=== PATIENT | female | born 1945 | race Caucasian/White ===

== ENCOUNTER 2018-08-01 11:00 | Inpatient (IN) | payer OTHER ==
[~2018-08-01] VITALS: Ht 154.9 cm; Wt 68.0 kg
[2018-08-01] MEDS ORDERED: GABAPENTIN300 MG PO (14:38)
[2018-08-01] MEDS ORDERED: CLONAZEPAM1 MG PO (14:38)
[2018-08-09] MEDS ORDERED: DOCUSATE SODIU100 MG PO (11:35)
[2018-08-09] MEDS ORDERED: PERCOCET 5-3251 EACH PO (11:37)
[2018-08-09] MEDS ORDERED: CLONAZEPAM1 MG PO (11:37)
[2018-08-09] MEDS ORDERED: GABAPENTIN800 MG PO (12:32)
== END 2018-08-09 15:20 | DRG 454 ==
LOC: PED 08-08 04:35 → O/R 08-08 04:35 → SURH 08-08 10:00 → PED 08-08 11:54 → SURH 08-08 12:45 → PED 08-09 15:20
PROVIDERS: Orthopaedic Surgery Orthopaedic Surgery of the Spine
PROC: 0RG2071 Fusion of 2 or more Cervical Vertebral Joints with Autologous Tissue Substitute, Posterior Approach, Posterior Column, Open Approach (ICD-10-PCS; 2018-08-08)
PROC: 0RT30ZZ Resection of Cervical Vertebral Disc, Open Approach (ICD-10-PCS; 2018-08-08)
PROC: 07DS3ZZ Extraction of Vertebral Bone Marrow, Percutaneous Approach (ICD-10-PCS; 2018-08-08)
PROC: 0RG20A0 Fusion of 2 or more Cervical Vertebral Joints with Interbody Fusion Device, Anterior Approach, Anterior Column, Open Approach (ICD-10-PCS; principal; 2018-08-08 10:00)
DX: M50.01 Cervical disc disorder with myelopathy, high cervical region (principal); M47.12 Other spondylosis with myelopathy, cervical region

== ENCOUNTER 2019-10-17 07:00 | Day surgery (SDC) | payer OTHER ==
[~2019-10-17] VITALS: Ht 152.4 cm; Wt 68.0 kg
[~2019-10-17 07:00] MED LIST: ATORVASTATIN CA10 MG PO; CLONAZEPAM1 MG PO; DOCUSATE SODIU100 MG PO; GABAPENTIN300 MG PO; GABAPENTIN800 MG PO; PERCOCET 5-3251 EACH PO
[2019-10-17] MEDS ORDERED: PERCOCET 5-3251 EACH PO (11:26)
[2019-10-17] MEDS ORDERED: COLACE100 MG PO (11:26)
[2019-10-17] MEDS ORDERED: CLONAZEPAM0.5 MG PO (11:26)
== END 2019-10-18 08:00 | disposition home or self-care (01) ==
LOC: CIR.AMB 07:00 → SURH 09:30 → O/R 13:12 → SURH 13:12 → EDSTATUS 13:15 → CIR.AMB 10-18 08:00 → O/R 10-18 15:31 → SURH 10-18 15:31
DX: M48.062 Spinal stenosis, lumbar region with neurogenic claudication (principal); M54.16 Radiculopathy, lumbar region; I10 Essential (primary) hypertension

== ENCOUNTER 2020-09-12 09:00 | Inpatient (IN) | payer OTHER ==
[~2020-09-12] VITALS: Ht 157.5 cm; Wt 68.0 kg
[~2020-09-12 09:00] MED LIST changes: +CLONAZEPAM0.5 MG PO; +COLACE100 MG PO
[2020-09-12] MEDS ORDERED: PROAIR HFA8.5 GM IH (11:44)
[2020-09-19] MEDS ORDERED: CLONAZEPAM1 MG PO (15:47)
[2020-09-19] MEDS ORDERED: PERCOCET 5-3251 EACH PO (15:47)
[2020-09-19] MEDS ORDERED: COLACE100 MG PO (15:47)
[2020-09-19] MEDS ORDERED: MEDROLPACK PO (15:48)
[2020-09-19] MEDS ORDERED: AMOX-CLAV 875-1 EACH PO (15:48)
[2020-09-19] MEDS ORDERED: NEURONTIN800 MG PO (15:48)
== END 2020-09-21 12:22 | disposition home or self-care (01) | DRG 455 ==
LOC: ADM 09:00 → EDSTATUS 09:00 → SURH 09-19 09:00 → O/R 09-19 10:54 → SURG 09-19 19:36 → MEDI 09-21 03:03 → SURG 09-21 12:22
PROVIDERS: ADMIT Orthopaedic Surgery Orthopaedic Surgery of the Spine; ATTEND Orthopaedic Surgery Orthopaedic Surgery of the Spine
PROC: 0SG1071 Fusion of 2 or more Lumbar Vertebral Joints with Autologous Tissue Substitute, Posterior Approach, Posterior Column, Open Approach (ICD-10-PCS; 2020-09-19)
PROC: 3E0U0GB Introduction of Recombinant Bone Morphogenetic Protein into Joints, Open Approach (ICD-10-PCS; 2020-09-19)
PROC: 0ST20ZZ Resection of Lumbar Vertebral Disc, Open Approach (ICD-10-PCS; 2020-09-19)
PROC: 07DR3ZZ Extraction of Iliac Bone Marrow, Percutaneous Approach (ICD-10-PCS; 2020-09-19)
PROC: 0SG10AJ Fusion of 2 or more Lumbar Vertebral Joints with Interbody Fusion Device, Posterior Approach, Anterior Column, Open Approach (ICD-10-PCS; principal; 2020-09-19 09:00)
PROC: 4A12X4Z Monitoring of Cardiac Electrical Activity, External Approach (ICD-10-PCS; 2020-09-21)
DX: M48.062 Spinal stenosis, lumbar region with neurogenic claudication (principal); M43.16 Spondylolisthesis, lumbar region; M51.36 Other intervertebral disc degeneration, lumbar region; M41.56 Other secondary scoliosis, lumbar region; I10 Essential (primary) hypertension